=== PATIENT | male | born 1965 ===

== ENCOUNTER 2019-07-13 08:18 | Outpatient (CLI) | payer OTHER ==
[~2019-07-13 08:18] MED LIST: ORPH100T PO; PROTONIX40 MG PO; PROVENTIL HFA6.7 GM IH; TUSICOF LIQUID120 ML PO
== END 2019-07-13 14:47 | disposition home or self-care (01) ==
LOC: TOM 08:18
DX: S52.572A Other intraarticular fracture of lower end of left radius, initial encounter for closed fracture (principal)